=== PATIENT | female | born 1990 | race Caucasian/White ===

== ENCOUNTER → 2024-04-15 13:09 | Outpatient (REF) | payer OTHER, SELFPAY | LOC: HWRAD 13:09 | PROVIDERS: ATTENDING PHYSICIAN Internal Medicine | DX: R91.8 Other nonspecific abnormal finding of lung field (principal) | CPT/HCPCS: 71250 ==

== ENCOUNTER → 2024-11-24 07:07 | Outpatient (REF) | payer OTHER, SELFPAY | LOC: PAVMRI 07:07 | PROVIDERS: FAMILY PHYSICIAN Internal Medicine | DX: M54.31 Sciatica, right side (principal); M54.32 Sciatica, left side; G43.009 Migraine without aura, not intractable, without status migrainosus | CPT/HCPCS: 72148 ==

== ENCOUNTER → 2024-11-25 11:06 | Outpatient (REF) | payer OTHER, SELFPAY | LOC: MRI 3T 11:06 | PROVIDERS: FAMILY PHYSICIAN Internal Medicine | DX: G43.009 Migraine without aura, not intractable, without status migrainosus (principal); M54.31 Sciatica, right side; M54.32 Sciatica, left side | CPT/HCPCS: 70553; A9575 ==